=== PATIENT | female | born 1980 | race Caucasian/White ===

== ENCOUNTER 2020-04-28 19:23 | Emergency (ER) | payer OTHER, SELFPAY ==
[2020-04-28 19:24] VITALS: BP 164/85; PULSE 76; RESP 18; TEMP 36; O2SAT 100; BMI 33.1
[2020-04-28 19:26] VITALS: BP 164/85; PULSE 76; RESP 18; TEMP 36; O2SAT 100
--- NOTE | 2020-04-28 19:46 | CT_ITS ---
HISTORY: SUDDEN ONSET LT FLANK PAIN/N/V/D. NO HX KS TECHNIQUE: Helically acquired images were obtained of the abdomen and pelvis without oral or IV contrast. A radiation dose optimization technique was used for this scan. COMPARISON: None FINDINGS: # of images incl. paperwork: 504 LUNG BASES: clear. CT abdomen: Bones are unremarkable. The gallbladder remains. Liver, spleen, pancreas, and adrenal glands are normal. The right kidney is normal. Left renal edema, left perirenal edema, with left hydronephrosis. Left hydroureter with periureteric edema. Within the distal left ureter there is a 2 x 3 mm stone within 2 cm of the left ureterovesicular junction. The aorta is normal. There is no intra-or extrahepatic biliary ductal dilatation. CT pelvis: No ascites is present. The uterus and ovaries are not pathologically enlarged. The appendix is normal. Series 2 image 110. The bladder is mostly decompressed. Bowel gas pattern is normal. CT/Abdomen/Pelvis without Cont IMPRESSION: Left hydronephrosis and left hydroureter with 3 x 2 mm distal left ureteric stone Individualized dose optimization techniques were used for this CT. at 2026 Reported and signed by: Mika Hartman MD Electronically Signed: Mika Hartman MD at 20:25 EST Tel , Service support ,
--- NOTE | 2020-04-28 19:47 | ED.VISSUMM ---
- ER Visit Summary Date of Service: 04/28/20 Chief Complaint: Left flank pain History of Present Illness: The patient is a [address] of PCOS and hypertension. Prior cholecystectomy. Patient states around 539 had sudden onset left flank pain after going to the bathroom. No prior history. No history of stones. No trauma. No dysuria hematuria. Last menstrual period was normal about 3 weeks ago. Denies any vaginal bleeding or discharge. Recently has not been ill. No trauma. Pain starts in her left mid back region and rotates to her left groin area. Physical Examination: Middle-aged female upright but bent over at bedside with pain. Vital signs stable afebrile. H EENT exam unremarkable. Lungs are clear. Heart regular rhythm rate about 75. Abdomen soft nontender normal bowel sounds no peritoneal signs. Back nontender. No CVA tenderness. No signs of trauma. Moving all 4 extremities. Neurologically she is awake and alert with no focal motor deficits. Test Results: Chemistries unremarkable potassium 3.2. Normal creatinine and gap. UA positive for blood and ketones. 25-50 red cells no signs of infection no bacteria. Serum test negative. CT flank without contrast shows left hydronephrosis with hydroureter with a 3 x 2 mm distal ureter stone just proximal to the bladder. Consistent with her history and exam. Emergency Department Course and Treatment: Patient with sudden onset left flank pain I think this will be a kidney stone. Versus other etiologies such as a UTI versus other. She will be treated with a milligram of Dilaudid IV, Toradol and Zofran. Screening labs and urinalysis along with a CT flank study without contrast. Treatment Plan: Repeat exam patient is doing well at 8:35 PM. She is currently pain-free. We went over all of her test results. Prescription for Toradol and limited [place] for pain. Urine strainer. Follow-up as needed. Disposition: Discharge Impression: Acute left flank pain distal left ureter 3 x 2 mm ureteral calculi. This note was generated with [employer] dictation software. It may contain incorrect words, spelling, and punctuation that were not noted in review of the chart prior to signing ED Disposition - Plan for ED Patient: Referrals: Carolyn Shoemaker MD [Primary Care Provider] -
[2020-04-28] MEDS: Ketorolac 30 MG/ML Syringe IV (19:53)
[2020-04-28] MEDS: Ondansetron 4 MG/2 ML Vial IV (19:53)
[2020-04-28] MEDS: HYDROmorphone 1 MG/ML Syringe IV (19:55)
[2020-04-28] MEDS: 0.9% Normal Saline 1,000 ML 1000 ML IV (19:56)
[2020-04-28 20:04] LABS: Bacteria 0 SEEN /hpf (None Seen); White Blood Cells 0 SEEN /hpf (0-5)
[2020-04-28 20:07] LABS: Color, Urine Yellow (Yellow); Glucose, Dipstick Normal (Normal); Leukocyte Esterase-Dipstick 100 /ul (Negative); Nitrite-Dipstick Negative (Negative); Occult Blood-Urine 250 /ul (Negative); Protein-Dipstick 30 mg/dl (Negative); Specific Gravity, Urine 1.015 (1.002-1.030); Urine Bilirubin Dipstick Negative (Negative); Urine Clarity Sl. Cloudy (Clear); Urine Urobilinogen Normal (Normal)
[2020-04-28 20:13] LABS: Ketone-Dipstick 150 mg/dl (Negative)
[2020-04-28 20:14] LABS: Anion Gap 10 (5-15); BUN 15 mg/dL (7-18); Calcium,Total 9.2 mg/dL (8.5-10.1); Chloride 104 mmol/L (98-107); EST Glomerular Filtration Rate 65 mL/min (>60); Est Glom Filt Rate - Afr Amer 78 mL/min (>60); Estimated Creatinine Clearance 71.27 ml/min; Glucose 148 mg/dL (74-106); Internal QC Validated? YES +Cl - CLEAR BKGD; Potassium 3.2 mmol/L (3.5-5.1); Pregnancy, Serum, hCG Quali. NEGATIVE Negative; Sodium Level 137 mmol/L (136-145)
[2020-04-28 20:20] LABS: Mucous, Urine 2+ /hpf (<or=2+); Red Blood Cells-Urine 25-50 SEEN /hpf (0-5); Squamous Epithelial Cells - UA 5-10 SEEN /hpf (5-10)
--- NOTE | 2020-04-28 20:45 | DCINST.ED_ITS ---
ED Disposition - Plan for ED Patient: Disposition: Home or Assisted Living Instructions: ED Renal Stone w Colic Prescriptions: Hydrocodone Bitart/Apap 5-325 [Nehal[place] 5MG-325MG] 1 tab PO Q4H PRN PRN 2 Days #10 tab PRN Reason: Pain Prescription Printed Ketorolac [Toradol] 10 mg PO Q4H #7 tab Prescription Printed Referrals: Carolyn Shoemaker MD [Primary Care Provider] - 3-5 Days if not improving Additional Instructions: Plenty of fluids and rest. Strain your urine looking for the past stone. Toradol which is an anti-inflammatory for pain. [place]hal[place] or Vicodin for pain also. Anytime you take a narcotic can cause your constipation or nausea. Do not drive while taking the [place]hal[place]. Follow-up with not improving return if worsening pain or fever. This stone is 2 to 3 mm and should pass.
[2020-04-28 20:56] VITALS: BP 121/82; PULSE 76; RESP 17; TEMP 36.6; O2SAT 100
[2020-04-28 20:58] VITALS: BP 121/82; PULSE 76; RESP 17; TEMP 36.6; O2SAT 100
== END 2020-04-28 20:40 | disposition home or self-care (01) ==
PROVIDERS: Emergency Provider Emergency Medicine; PCP Internal Medicine
DX: R10.9 Unspecified abdominal pain (principal); N20.1 Calculus of ureter; I10 Essential (primary) hypertension
CPT/HCPCS: 74176; 80048; 81001; 84703; 96361; 96374; 96375; 99283; J7030; A4216; J2405

== ENCOUNTER 2020-07-05 16:20 | Emergency (ER) | payer OTHER, SELFPAY ==
[2020-07-05 16:20] VITALS: BP 118/101; PULSE 125; RESP 18; TEMP 35.9; O2SAT 93; BMI 31.5
[2020-07-05 16:56] VITALS: BP 123/91; PULSE 98; RESP 15; TEMP 36.4; O2SAT 95
--- NOTE | 2020-07-05 16:56 | RAD_ITS ---
STUDY: X-RAY CHEST REASON FOR EXAM: Female, 40 years old. COVID POSITIVE SINCE 06/26. FATIGUE,COUGH,FEVER TECHNIQUE: Single AP portable view of the chest. COMPARISON: None. FINDINGS: Normal lung volumes. Mild ill-defined hazy pulmonary opacities in both lung bases. Findings could represent multifocal pneumonia. CT recommended. No effusions. Normal size heart. Normal mediastinum and luis. Normal visualized pulmonary arteries. Normal visualized aortic arch and descending thoracic aorta. Normal visualized thoracic spine. Normal visualized ribs, clavicles, and shoulders. There is no demonstrated abnormality of the visualized soft tissue structures of the upper abdomen. RAD/Chest 1 View (Portable) IMPRESSION: Possible mild airspace opacities in both lung bases. Confirmation with CT scan recommended. Electronically Signed: Landon Chu MD at 17:25 EST , Service support ,
[2020-07-05 17:08] LABS: Basophil# 0.02 X10^3/uL; Basophil% 0.2 % (0-1); Eosinophil# 0.03 X10^3/uL; Eosinophils% 0.4 % (0-5); Hematocrit 44.5 % (37-47); Hemoglobin 15.5 g/dL (12.0-15.0); Lymphocyte % 7.1 % (19-41); Mean Corp Hgb Conc 34.8 g/dL (32-36); Mean Corpuscular Hgb 30.4 pg (27.0-32.0); Mean Corpuscular Volume 87.3 fL (81-99); Mean Platelet Vol. 9.8 fl (6.2-12.0); Monocyte# 0.75 X10^3/uL; Monocyte% 8.9 % (0-10); NRBC Flagged by Analyzer 0 % (0-5); Neutrophil # 7.01 X10^3/uL (2.7-7.7); Neutrophil % 82.9 % (47-70); POSITIVE DIFFERENTIAL YES; Platelet Count 234 K/mm3 (150-450); RBC Distribution Width CV 11.6 % (11.6-14.6); RBC Distribution Width SD 37.3 fl (35.1-43.9); White Blood Count 8.5 K/mm3 (4.4-11.0)
[2020-07-05 17:10] VITALS: O2SAT 95
[2020-07-05 17:21] LABS: Differential Indicated SCAN CRITERIA MET
[2020-07-05 17:22] LABS: Anion Gap 6 (5-15); BUN 12 mg/dL (7-18); BUN/Creat Ratio 17.8 RATIO (10-20); Calcium,Total 9.1 mg/dL (8.5-10.1); Chloride 101 mmol/L (98-107); Creatinine, Serum 0.67 mg/dL (0.55-1.02); EST Glomerular Filtration Rate 102 mL/min (>60); Est Glom Filt Rate - Afr Amer 123 mL/min (>60); Estimated Creatinine Clearance 106.37 ml/min; Glucose 168 mg/dL (74-106); Potassium 3.1 mmol/L (3.5-5.1); Sodium Level 135 mmol/L (136-145)
[2020-07-05 17:25] LABS: Internal QC Validated? YES +Cl - CLEAR BKGD; Pregnancy, Serum, hCG Quali. NEGATIVE Negative
[2020-07-05 17:34] LABS: D-Dimer Quantitative (DVT/PE) < 0.27 FEU/ug/m (0.27-0.49)
[2020-07-05 17:52] VITALS: BP 127/92; PULSE 104; RESP 17; TEMP 37.1; O2SAT 95; O2SAT 96
[2020-07-05 18:04] LABS: Differential Comment SCANNED
--- NOTE | 2020-07-05 18:12 | ED.VISSUMM ---
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 She reports she has a cough beginning June 23. She tested positive for Covid June 26. She reports that over the past 5 days she has developed a fever to 101.5 degrees. She reports that her cough is nonproductive. She has mild shortness of breath with walking. She has not been wheezing. She denies any ankle swelling or calf pain. Patient reports that she has been nauseated and had one episode of posttussive emesis yesterday. She is having diarrhea twice a day. She denies any blood in her stools. She reports she has a dull headache is 5-10 severity. She reports she has had similar headaches previously. Physical Examination: Vitals: Stable. Afebrile. General: Well-nourished and well-developed. Head: Normocephalic atraumatic. Neck: Supple, no lymphadenopathy. No JVD. Nontender. Cardiovascular: Regular rate and rhythm. No murmurs. Respiratory: No respiratory distress. Clear to auscultation bilaterally. Abdominal: Soft, nontender, nondistended, normal bowel sounds. No guarding, rebound, or peritoneal signs. Back: Nontender. Extremities: Nontender, no edema. Skin: Normal color, no rash. Neurologic: Alert and oriented ?3. Cranial nerves II through XII are intact. Normal strength and sensation. Psych: Normal affect. Test Results: CBC shows a hemoglobin of 15.5, stable neutrophils 83, lymphocytes of 7. Chem-7 shows a sodium 135, potassium 3.1, glucose 178. D-dimer is negative. test is negative. Clinical Impression(s) from Imaging Studies Chest X-Ray 07/05/20 16:56 IMPRESSION: Possible mild airspace opacities in both lung bases. Confirmation with CT scan recommended. Electronically Signed: Landon Chu MD at 17:25 EST , Service support , Emergency Department Course and Treatment: Patient is ambulatory pulse ox remained greater than 95%. Her chest x-ray in my opinion is consistent with Covid. I do not think that exposing her to the radiation of a CT scan is in her best interest. Treatment Plan: The timeframe of the patient's illness puts her outside of the window for monoclonal antibody. She does not need oxygen. Dexamethasone is not indicated. She will be discharged with symptomatic care and instructed to follow-up with her primary care physician in 10 to 14 days if not improving. Return to the emergency department for any worsening symptoms. Disposition: To home in improved and stable condition. Impression: 1 1. COVID-19 infection. This note was generated with [employer] dictation software. It may contain incorrect words, spelling, and punctuation that were not noted in review of the chart prior to signing ED Disposition - Plan for ED Patient: Instructions: Coronavirus Disease 2019 (COVID-19): Overview Referrals: Carolyn Shoemaker MD [Primary Care Provider] - 10-14 Days if not better
[2020-07-05 18:30] VITALS: BP 123/89; PULSE 76; RESP 18; O2SAT 96
== END 2020-07-05 18:31 | disposition home or self-care (01) ==
LOC: ED 17:13
PROVIDERS: Emergency Provider Emergency Medicine; PCP Internal Medicine
DX: U07.1 COVID-19 (principal); R11.2 Nausea with vomiting, unspecified; R19.7 Diarrhea, unspecified; I10 Essential (primary) hypertension; Z79.899 Other long term (current) drug therapy
CPT/HCPCS: 71045; 80048; 84703; 85025; 85379; 99284; A4216